=== PATIENT | male | born 1995 | race Caucasian/White ===

== ENCOUNTER 2017-10-11 09:40 | Emergency (ER) | payer OTHER ==
[2017-10-11] MEDS: KETOROLAC TROMETHAMINE 10 MG TAB PO (10:30)
== END 2017-10-11 11:24 | disposition home or self-care (01) ==
LOC: M ED 09:40
DX: S16.1XXA Strain of muscle, fascia and tendon at neck level, initial encounter (principal); S06.0X0A Concussion without loss of consciousness, initial encounter; W01.198A Fall on same level from slipping, tripping and stumbling with subsequent striking against other object, initial encounter; Y92.139 Unspecified place military base as the place of occurrence of the external cause; Y93.01 Activity, walking, marching and hiking; Y99.1 Military activity
CPT/HCPCS: 70450

== ENCOUNTER 2017-11-26 15:17 | Emergency (ER) | payer OTHER | END 2017-11-26 15:53 | disposition home or self-care (01) | LOC: M ED 15:17 | DX: J02.9 Acute pharyngitis, unspecified (principal) | CPT/HCPCS: 87880 ==

== ENCOUNTER 2018-05-17 15:19 | Emergency (ER) | payer OTHER | END 2018-05-17 16:40 | disposition home or self-care (01) | LOC: M ED 15:19 | DX: S60.211A Contusion of right wrist, initial encounter (principal); W22.8XXA Striking against or struck by other objects, initial encounter; Y92.69 Other specified industrial and construction area as the place of occurrence of the external cause | CPT/HCPCS: 73110 ==